=== PATIENT | female | born 2000 | race Caucasian/White ===

== ENCOUNTER 2020-04-17 23:15 | Emergency (ER) | payer OTHER, SELFPAY ==
[2020-04-17 23:19] VITALS: BP 123/78; PULSE 121; RESP 20; TEMP 36.3; O2SAT 98
[2020-04-17 23:24] VITALS: BP 123/78; PULSE 116; RESP 21
[2020-04-17 23:25] VITALS: PULSE 120; RESP 21
[2020-04-17 23:30] VITALS: PULSE 115; RESP 18
--- NOTE | 2020-04-17 23:30 | ECG_ITS ---
Measurements Intervals [place] Rate: 119 P: 61 WI: 131 QRS: 72 QRSD: 90 T: 41 QT: 297 QTc: 419 Interpretive Statements SINUS TACHYCARDIA BORDERLINE ST ABNORMALITY- ANTEROLATERAL LEADS BASELINE ARTIFACT- I, V1 ABNORMAL ECG Electronically Signed On 04-18-2020 6:17:17 [employer] by Chance Fatima D.O.
--- NOTE | 2020-04-17 23:33 | ED.GENADULT ---
HPI - General Adult General Chief complaint: Overdose <Foster Walls MD - Last Filed: 04/18/20 06:40> Stated complaint: POLY SUBSTANCE USE ERNST <Foster Walls MD - Last Filed: 04/18/20 06:40> Time Seen by Provider: 04/17/20 23:22 <Foster Walls MD - Last Filed: 04/18/20 06:40> History of Present Illness HPI narrative: Patient is a 19-year-old female who presents the emergency department with chief complaint of acute intoxication. Patient reports she was out with her friends ernst drank some alcohol took a little dab and used some Xanax. The patient reports that she was not trying to harm herself. Patient denies suicidal or homicidal ideations. Patient states that she does feels kind of tired. <Foster Walls MD - Last Filed: 04/18/20 06:40> Related Data Allergies/adverse reactions: Allergies Allergy/AdvReac Type Severity Reaction Status Date / Time No Known Allergies Allergy Mild Verified 07/24/19 16:21 <Foster Walls MD - Last Filed: 04/18/20 06:40> Review of Systems Review of Systems: Narrative: CONSTITUTIONAL: Denies fever, chills, or sweats. EYES: Denies visual changes, redness, or discharge. ENT: Denies rhinorrhea, congestion, sore throat, or otalgia. CARDIOVASCULAR: Denies chest pain, palpitations, or edema. RESPIRATORY: Denies cough or dyspnea. GASTROINTESTINAL: Denies abdominal pain, nausea, vomiting, or diarrhea. GENITOURINARY: Denies dysuria or hematuria. SKIN: Denies rash or itching. MUSCULOSKELETAL: Denies back pain, joint pain, or myalgia. NEUROLOGIC: Denies headache, numbness, or weakness. PSYCHIATRIC: Denies anxiety or depression. A 10 system review of systems was completed on the patient and is negative except for what is stated in the HPI. Nursing and ancillary documentation was reviewed. <Foster Walls MD - Last Filed: 04/18/20 06:40> PMFSH Past Medical History Medical History: Medical History Allergic rhinitis H/O intrinsic asthma <Foster Walls MD - Last Filed: 04/18/20 06:40> Family History Family History: Family History Grandparent Hypertension Family history of cardiovascular disease Family history of malignant neoplasm of uterus <Foster Walls MD - Last Filed: 04/18/20 06:40> Social History Social History: Social History Smoking status: Never smoker Second hand tobacco smoke exposure: No Alcohol intake: never <Foster Walls MD - Last Filed: 04/18/20 06:40> Exam Narrative: Exam Narrative: GENERAL: Well-appearing, well-nourished, and in no acute distress. HEAD: Normocephalic, atraumatic. EYES: PERRLA and EOMI. ENT: Nares clear, no rhinorrhea or epistaxis. Mucous membranes moist. NECK: Supple. CHEST: Clear to auscultation. No respiratory distress. HEART: Tachycardic rate and rhythm. No murmur heard. Normal peripheral pulses. ABDOMEN: Soft, nontender, nondistended, normal active bowel sounds. EXTREMITIES: Normal range of motion. No edema. SKIN: Warm, dry, no rash. NEURO: No focal deficits. Alert and oriented x3. PSYCH: Normal mood and affect. <Foster Walls MD - Last Filed: 04/18/20 06:40> Course Course Emergency Course: EKG shows sinus tachycardia rate of [address] elevation or ST depression no widened QRS no prolonged QT Patient has maintained stable vital signs patient will be observed until she is sober enough to be discharged in the custody of her family <Foster Walls MD - Last Filed: 04/18/20 06:40> Vital Signs Vital signs: Vital Signs Temperature 36.3 C L 04/17/20 23:19 Pulse Rate 121 H 04/17/20 23:19 Respiratory Rate 20 04/17/20 23:19 Blood Pressure 123/78 04/17/20 23:19 Pulse Ox
[2020-04-17] MEDS: SODIUM CHLORIDE 0.9% IV 1,000 ML 999 ML IV CONT (23:42)
[2020-04-17 23:45] VITALS: PULSE 109; RESP 20
[2020-04-17 23:45] LABS: Basophils Absolute Auto 0.1 K/mm3 (0.0-0.1); Basophils Percent Auto 0.4 % (0.2-1.2); Eosinophils Absolute Auto 0.2 K/mm3 (0-0.3); Eosinophils Percent Auto 1.8 % (0-4.4); Hematocrit 38.9 % (37.0-47.0); Hemoglobin 12.8 g/dL (12.0-15.0); Immature Granulocyte Absolute 0.02 K/mm3 (0.00-0.031); Immature Granulocyte Percent A 0.2 % (0-0.5); Lymphocytes Absolute Auto 2.71 K/mm3 (0.9-3.2); Lymphocytes Percent Auto 24.2 % (18.3-44.2); Mean Corpuscular HGB Conc 32.9 g/dl (32-36); Mean Corpuscular Volume 91.3 fl (80-100); Mean Platelet Volume 10.1 fl (7.4-10.4); Monocytes Absolute Auto 0.9 K/mm3 (0.1-0.6); Monocytes Percent Auto 7.6 % (2.6-8.5); Neutrophils Absolute Auto 7.4 K/mm3 (1.3-6.7); Neutrophils Percent Auto 65.8 % (45.5-73.1); Platelet Count Result 330 k/mm3 (150-375); Red Blood Count 4.26 M/mm3 (4.2-5.4); White Blood Count 11.2 K/mm3 (4.5-10.0)
[2020-04-17 23:47] VITALS: BP 116/72; PULSE 111; RESP 22
[2020-04-17 23:57] LABS: Alanine Aminotransferase 23 U/L (4-35); Albumin Level 4.2 g/dL (3.5-5.1); Alkaline Phosphatase 69 U/L (38-126); Anion Gap 8 mmol/L (8-16); Aspartate Amino Transferase 32 U/L (14-36); Bilirubin,Total 0.4 mg/dL (0.2-1.3); Blood Urea Nitrogen 10 mg/dL (7-17); Calcium 9.2 mg/dL (8.4-10.2); Carbon Dioxide 25 mmol/L (22-30); Chloride 105 mmol/L (98-107); Estimated CRCL calculation 87 ml/min; Estimated Glomerular Filt Rate > 60; Glucose 104 mg/dL (65-105); Potassium 4.1 mmol/L (3.4-5.0); Sodium 138 mmol/L (137-145)
[2020-04-18] VITALS (36 sets, daily range): BP systolic 74–122; BP diastolic 48–76; PULSE 75–118; RESP 12–21; O2SAT 95–100
[2020-04-18 00:03] LABS: Acetaminophen < 10 ug/mL (10-30); Ethanol < 10 mg/dL (<10); Salicylate < 1.0 mg/dL (2-20)
[2020-04-18 00:52] LABS: Add Urine Microscopic? YES; Appearance Urine Clear (Clear); Bacteria Urine Trace /hpf; Bilirubin Urine Negative (Negative); Blood Urine 1+ (Negative); Color Urine Yellow (Yellow); Glucose Urine UA Negative (Negative); Ketones Urine Trace mg/dL (Negative); Leukocyte Esterase Ur Negative LEU/UL (Negative); Mucus Urine Few /lpf; Nitrate Urine Negative (Negative); Protein Urine Negative (Negative); Specific Grav Ur 1.011 (1.001-1.035); Squamous Epithelial Cell Urine Rare /hpf (Few); Urobilinogen Urine Negative mg/dL (<2.0); WBC Urine 0-3 /hpf
[2020-04-18 01:01] LABS: Benzodiazepines Screen Urine Positive (Negative)
[2020-04-18 01:02] LABS: Amphetamine Screen Urine Negative (Negative); Cannabinoid Screen Urine Positive (Negative); Cocaine Screen Urine Negative (Negative); Methadone Screen Urine Negative (Negative); Opiate Screen Urine Negative (Negative); Phencyclidine Screen Urine Negative (Negative)
[2020-04-18 01:03] LABS: Barbiturate Screen Urine Negative (Negative)
--- NOTE | 2020-04-18 07:26 | PC.NURSE ---
Assumed care of pt. Pt is alert and orient x 4, and requesting to go home. Given water and denies any N/V. Pt mom contacted per pt request for pickler helper. Pt able to walk w/ steady gait at this time - reminded and encouraged pt to use call light when up so RN can assist. Pt verbalized understanding.
--- NOTE | 2020-04-18 07:27 | PC.NURSE ---
Called pt mother Radha at [phone] for ride home.
== END 2020-04-18 08:02 | disposition home or self-care (01) ==
PROVIDERS: Emergency Provider Emergency Medicine; PCP Family Medicine
DX: T50.901A Poisoning by unspecified drugs, medicaments and biological substances, accidental (unintentional), initial encounter (principal)
CPT/HCPCS: 36415; 80053; 80307; 81001; 85025; 93005; 96360; 99283; 99284; J7030

== ENCOUNTER 2020-08-28 16:12 | Emergency (ER) | payer OTHER, SELFPAY ==
--- NOTE | 2020-08-28 16:16 | ED.WOUNDLAC ---
HPI - Wound/Laceration General Chief Complaint: Wound/Laceration Stated Complaint: finger laceration Source: patient and RN notes reviewed Limitations: no limitations History of Present Illness HPI narrative: The right-handed patient, previously mostly healthy, presents with left finger avulsion/laceration. Patient states she works at a [employer] and sustained knife avulsion of her small finger along the distal, ulnar aspect. She complains of mild bleeding and pain that is worse with motion, better with rest or elevation. No numbness, weakness; avulsion is very superficial. Patient advised she will be given wound care; her tetanus is up-to-date. Related Data Allergies Allergy/AdvReac Type Severity Reaction Status Date / Time No Known Allergies Allergy Mild Verified 07/24/19 16:21 Review of Systems Review of Systems: Narrative: General/Constitutional: No weight loss,fever Eyes: N0: Redness,discharge Ears/Nose/Throat: No: Epistaxis,ear discharge Respiratory: Denies: Hemoptysis Gastrointestinal: No Vomiting, Bleeding-rectal Skin: No Lumps, eruption Neurologic: No Focal Weakness,Sz Hematologic: Denies: Petechiae/Purpura Psychiatric: No: Suicida ideationl All Other Systems: Reviewed and Negative [facility] Past Medical History Medical History Allergic rhinitis H/O intrinsic asthma Family History Family History Grandparent Hypertension Family history of cardiovascular disease Family history of malignant neoplasm of uterus Social History Social History Smoking status: Never smoker Second hand tobacco smoke exposure: No Alcohol intake: never Gender identity (if verbalized by the patient): Female Comments At time of signature, agree with nursing past medical, surgical, social and family history. There is no relevant family history pertinent to the presenting complaint Exam Narrative: Exam Narrative: General Appearance: Well appearing, , Conjunctiva clear Ears: External ear normal, Auditory canal normal Nose: Normal nose, Nares clear Mouth/Throat: Normal appearing, Normal lips Neck: Supple Respiratory: Airway patent, No respiratory distress Skin: 1/3 x 1 cm long, skin avulsion of finger; otherwise warm, Dry, Normal color MS-finger: Normal strength (mostly intact, limited flexion/extension by pain), Tenderness (ulnar/laterally, with mild decreased ROM), no swelling, Other (no anterior drawer, no collateral laxity, ) Neurological: A&O x3, Normal affect Course Vital Signs Vital signs: Vital Signs Temperature 98 F 08/28/20 16:17 Pulse Rate 103 H 08/28/20 16:17 Respiratory Rate 18 08/28/20 16:17 Blood Pressure 116/79 08/28/20 16:17 Pulse Oximetry 99 08/28/20 16:17 Temperature 98 F 08/28/20 16:17 Pulse Rate 103 H 08/28/20 16:17 Respiratory Rate 18 08/28/20 16:17 Blood Pressure 116/79 08/28/20 16:17 Pulse Oximetry 99 08/28/20 16:17 Discharge Plan Discharge Clinical Impression: Avulsion of skin of finger Qualifiers: Encounter type: initial encounter Qualified Code(s): S61.209A - Unspecified open wound of unspecified finger without damage to nail, initial encounter Patient Disposition: Home, Self-Care Condition: Improved Instructions: Skin Avulsion (ED) Prescriptions: New mupirocin 2 % ointment 1 applic TOPICAL TID Qty: 30 RF: 0 cephalexin 500 mg capsule 1,000 mg PO Q12H 3 Days Qty: 12 RF: 0 No Action norgestimate-ethinyl estradiol [Sprintec (28)] 0.25-35 mg-mcg tablet 1 tablet PO DAILY Qty: 28 RF: 0 albuterol sulfate 90 mcg/actuation HFA aerosol inhaler See Rx Instructions .ROUTE .COMPLEX Qty: 18 RF: 3 Follow-up/Referrals: Jayshree Giron MD [Primary Care Provider] -
[2020-08-28 16:17] VITALS: BP 116/79; PULSE 103; RESP 18; TEMP 36.6; O2SAT 99
[2020-08-28] MEDS: LIDOCAINE, EPINEPHRINE, TETRACAINE VISCOUS SOLN 3 ML TOPICAL (16:21)
== END 2020-08-28 16:55 | disposition home or self-care (01) ==
PROVIDERS: Emergency Provider Emergency Medicine; PCP Family Medicine
DX: S61.207A Unspecified open wound of left little finger without damage to nail, initial encounter (principal); W26.0XXA Contact with knife, initial encounter
CPT/HCPCS: 99213; G0463